=== PATIENT | male | born 1970 | race Caucasian/White ===

== ENCOUNTER 2016-11-06 19:34 | Emergency (ER) | payer OTHER ==
[~2016-11-06] VITALS: Ht 160 cm; Wt 59.0 kg
[2016-11-06] MEDS ORDERED: diphenhydrAMINE HCL 50 MG/ML VIAL IM ONE (19:45)
[2016-11-06] MEDS ORDERED: HALOPERIDOL LACTATE 5 MG/ML AMP IM ONE (19:45)
[2016-11-06] MEDS ORDERED: SODIUM CHLORIDE 0.9% FLUSH 5 ML FLUSH IVF PRN (19:45)
[2016-11-06] MEDS ORDERED: LORazepam 2 MG/ML VIAL IM ONE (19:45)
[2016-11-06 19:56] VITALS: BP 115/86; PULSE 108; RESP 19; TEMP 98.4; O2SAT 95
[2016-11-06 19:58] LABS: AUTOMATED NEUTROPHIL # 6.9 TH/MM3 (1.8-7.7); BASOPHIL # 0.2 TH/MM3 (0-0.2); BASOPHIL % 1.2 % (0.0-2.0); EOSINOPHIL # 0.2 TH/MM3 (0-0.4); EOSINOPHIL % 1.8 % (0.0-4.0); HEMATOCRIT 41.4 % (39.0-51.0); HEMO FLAGS DIFF FINAL; LYMPH % 35.8 % (9.0-44.0); LYMPHOCYTE # 4.5 TH/MM3 (1.0-4.8); MEAN CORPUSCULAR HEMOGLOBIN 31.5 PG (27.0-34.0); NEUT % 55.2 % (16.0-70.0); PLATELET COUNT 268 TH/MM3 (150-450); RED CELL DISTRIBUTION WIDTH 14.6 % (11.6-17.2); WHITE BLOOD COUNT 12.5 TH/MM3 (4.0-11.0)
[2016-11-06 20:05] VITALS: RESP 18; O2SAT 95
[2016-11-06 20:19] LABS: ANION GAP 14 MEQ/L (5-15)
[2016-11-06 20:20] LABS: AMPHETAMINE, URINE NEG (NEG); BARBITURATES, URINE NEG (NEG); COCAINE, URINE NEG (NEG)
[2016-11-06 20:21] LABS: BACTERIA, URINE RARE /hpf; BLOOD, URINE NEG (NEG); GLUCOSE,URINE NEG (NEG); KETONE, URINE NEG (NEG); MUCUS URINE FEW /lpf (OCC); NITRITE,URINE NEG (NEG); PH, URINE 6.5 (5.0-8.5); SQUAMOUS EPITHELIAL CELL URINE <1 /hpf (0-5); URINE COLOR LIGHT-YELLOW (YELLW/STRAW)
[2016-11-06 20:22] LABS: COMMENT (UR) CATH-CULTURE IND; CULTURE IF INDICATED CATH CULTURE IND
[2016-11-06 20:22] LABS: ALKALINE PHOSPHATASE 77 U/L (45-117); ALT (GPT) 22 U/L (12-78); AST (GOT) 25 U/L (15-37); BICARBONATE 22.2 MEQ/L (21.0-32.0); BLOOD UREA NITROGEN 14 MG/DL (7-18); CHLORIDE 105 MEQ/L (98-107); CREATINE KINASE 329 U/L (39-308); GLOMERULAR FILTRATION RATE 55 ML/MIN (>89); POTASSIUM 3.9 MEQ/L (3.5-5.1); SODIUM (NA) 141 MEQ/L (136-145); TOTAL BILIRUBIN ADULT 0.2 MG/DL (0.2-1.0)
[2016-11-06 20:23] LABS: ACETAMINOPHEN LESS THAN 2.0 MCG/ML (10.0-30.0)
[2016-11-06] MEDS ORDERED: SODIUM CHLOR 0.9% 1000 ML INJ 1,000 ML IV ONE ×2 (20:45)
--- NOTE | 2016-11-06 20:58 | PD ---
HPI Chief Complaint: Psychiatric Symptoms Time Seen by Provider: 19:38 Travel History International Travel<30 days: No Contact w/Intl Traveler<30days: No Traveled to known affect area: No History of Present Illness HPI Patient is a 46-year-old male presents emergency department as a Ross act. Per police patient was apparently bothering bystanders as slight weak and her resting them. He approached police and requested to be Ross act. Things and escalated from there and patient became agitated, combative and stating that "things just aren't right". Patient initially got into the police vehicle and then en route became combative and refused to enter the building and was Ross acted. Patient combative here, attempting to hit staff. Stating "I have things real bad", and cannot explain further. Patient later states that he is supposed be on lithium and has been off of this for several weeks. Does not know the remainder of his medications. Upon arrival into the emergency Department patient attempting to assault staff, security and was physically and chemically restrained limiting the remainder of history. [facility] Past Medical History Medical History: Unable to Obtain Past Surgical History Other Surgery: Yes (UROSTOMY) Social History Alcohol Use: No Tobacco Use: No Substance Use: No Allergies-Medications (Allergen,Severity, Reaction): Coded Allergies: Penicillin (Verified Allergy, Severe, 11/06/16) Reported Meds & Prescriptions Reported Meds & Active Scripts Active Active Prescriptions or Reported Medications Unobtainable Review of Systems ROS Limitations: Clinical Condition, Combative, Poor Historian Physical Exam Exam Limitations: Clinical Condition, Poor Historian, Combative Narrative GENERAL: male middle-aged agitated combative and attempting the assault staff SKIN: Warm and dry. HEAD: Atraumatic. Normocephalic. EYES: Pupils equal and round. 3 mm. No scleral icterus. No injection or drainage. ENT: No nasal bleeding or discharge. Mucous membranes pink and m, regular rhythm oist. NECK: Supple CV: heart rate in the 100s. No murmur appreciated. RESPIRATORY: No accessory muscle use. Clear to auscultation. Breath sounds equal bilaterally. GASTROINTESTINAL: Abdomen soft, non-tender, nondistended. Urostomy in place. MUSCULOSKELETAL: Moving all extremities strong NEUROLOGICAL: Agitated, combative. Speech is pressured but clear. Moves all extremities equally and strong PSYCHIATRIC: Aggressive. Admits to "having things real bad" but does not elaborate further. Admits to feeling depressed, somewhat suicidal. Data Data Last Documented VS Vital Signs Date Time Temp Pulse Resp B/P Pulse Ox O2 Delivery O2 Flow Rate FiO2 11/06/16 20:05 18 95 Room Air 11/06/16 20:02 102 11/06/16 19:56 98.4 115/86 Orders Psych Screen (11/06/16 19:38) Electrocardiogram (11/06/16 19:38) Complete Blood Count With Diff (11/06/16 19:38) Comprehensive Metabolic Panel (11/06/16 19:38) Creatine Kinase (Cpk) (11/06/16 19:38) Urinalysis - C+S If Indicated (11/06/16 19:38) Ecg Monitoring (11/06/16 19:38) Iv Access Insert/Monitor (11/06/16 19:38) Oximetry (11/06/16 19:38) Sodium Chloride 0.9% Flush (Ns Flush) (11/06/16 19:45) Drug Screen, Random Urine (11/06/16 19:38) Alcohol (Ethanol) (11/06/16 19:38) Salicylates (Aspirin) (11/06/16 19:38) Tylenol (Acetaminophen) (11/06/16 19:38) Lactic Acid (11/06/16 19:38) Haloperidol Inj (Haldol Inj) (11/06/16 19:45) Lorazepam Inj (Ativan Inj) (11/06/16 19:45) Diphenhydramine Inj (Benadryl Inj) (11/06/16 19:45) Urine Culture (11/06/16 19:55) CKMB (11/06/16 19:50) CKMB% (11/06/16 19:50) Sodium Chlor 0.9% 1000 Ml Inj (Ns 1000 M (11/06/16 20:45) Sodium Chlor 0.9% 1000 Ml Inj (Ns 1000 M (11/06/16 20:45) Lactic Acid (11/06/16 20:39) Lorazepam Inj (Ativan Inj) (11/06/16 21:15) Restraints Non-Violent MONIQUE.Q3H (11/06/16 21:27) Labs Laboratory Tests Test 11/06/16 11/06/16 11/06/16 19:50 19:55 22:09 White Blood Count 12.5 TH/MM3 Red Blood Count 4.60 MIL/MM3 Hemoglobin 14.5 GM/DL Hematocrit 41.4 % Mean Corpuscular Volume 90.0 FL Mean Corpuscular Hemoglobin 31.5 PG Mean Corpuscular Hemoglobin 35.0 % Concent Red Cell Distribution Width 14.6 % Platelet Count 268 TH/MM3 Mean Platelet Volume 7.3 FL Neutrophils (%) (Auto) 55.2 % Lymphocytes (%) (Auto) 35.8 % Monocytes (%) (Auto) 6.0 % Eosinophils (%) (Auto) 1.8 % Basophils (%) (Auto) 1.2 % Neutrophils # (Auto) 6.9 TH/MM3 Lymphocytes # (Auto) 4.5 TH/MM3 Monocytes # (Auto) 0.8 TH/MM3 Eosinophils # (Auto) 0.2 TH/MM3 Basophils # (Auto) 0.2 TH/MM3 CBC Comment DIFF FINAL Differential Comment Sodium Level 141 MEQ/L Potassium Level 3.9 MEQ/L Chloride Level 105 MEQ/L Carbon Dioxide Level 22.2 MEQ/L Anion Gap 14 MEQ/L Blood Urea Nitrogen 14 MG/DL Creatinine 1.40 MG/DL Estimat Glomerular Filtration 55 ML/MIN Rate Random Glucose 87 MG/DL Lactic Acid Level 3.5 mmol/L 1.0 mmol/L Calcium Level 9.4 MG/DL Total Bilirubin 0.2 MG/DL Aspartate Amino Transf 25 U/L (AST/SGOT) Alanine Aminotransferase 22 U/L (ALT/SGPT) Alkaline Phosphatase 77 U/L Total Creatine Kinase 329 U/L Creatine Kinase MB 5.0 NG/ML Creatine Kinase MB % 1.5 % Total Protein 7.7 GM/DL Albumin 3.9 GM/DL Salicylates Level 4.6 MG/DL Acetaminophen Level LESS THAN 2.0 MCG/ML Ethyl Alcohol Level 288 MG/DL Urine Color LIGHT-YELLOW Urine Turbidity HAZY Urine pH 6.5 Urine Specific [place] 1.003 Urine Protein NEG mg/dL Urine Glucose (UA) NEG mg/dL Urine Ketones NEG mg/dL Urine Occult Blood NEG Urine Nitrite NEG Urine Bilirubin NEG Urine Urobilinogen LESS THAN 2.0 MG/DL Urine Leukocyte Esterase LARGE Urine RBC 2 /hpf Urine WBC 12 /hpf Urine Squamous Epithelial <1 /hpf Cells Urine Amorphous Sediment RARE Urine Bacteria RARE /hpf Urine Mucus FEW /lpf Microscopic Urinalysis Comment CATH-CULTURE IND Urine Opiates Screen NEG Urine Barbiturates Screen NEG Urine Amphetamines Screen NEG Urine Benzodiazepines Screen NEG Urine Cocaine Screen NEG Urine Cannabinoids Screen NEG MDM Medical Decision Making Medical Screen Exam Complete: Yes Emergency Medical Condition: Yes Medical Record Reviewed: Yes Differential Diagnosis 46-year-old male here as a Ross act with agitation, depression and suicidal ideation. Wolof includes medication nonadherence, substance-induced mood disorder, excited delirium, schizophrenia, bipolar disorder, alcohol intoxication. Narrative Course Due to patient's aggression, it is not safe for staff or him and he was physically and chemically restrained with Haldol, Ativan, Benadryl. Patient placed on monitor, IV established and blood obtained. Twelve-lead EKG shows sinus rhythm, rate [address] abnormalities, normal intervals. CBC, CMP, CPK, urinalysis, urine drug screen, blood alcohol level, aspirin, Tylenol level and lactic acid were obtained and notable for lactate 3.5. This is likely due to patient's excited delirium. Patient's urinalysis shows large leukocyte esterase with white cells and bacteria, but this is from eat his urostomy and is likely colonized and I do not think warrants treatment. Will await culture. Blood alcohol level 288. Patient was given 2 L normal saline bolus and lactate was repeated and normal at 1.0. Patient medically cleared for psychiatric evaluation. Critical Care Narrative Aggregate critical care time was 35 minutes. Time to perform other separately billable procedures was not included in the critical care time. My time did not include minutes spent treating any other patients simultaneously or on activities that did not directly contribute to the patient's treatment. The services I provided to this patient were to treat and/or prevent clinically significant deterioration that could result in: Cardiopulmonary decompensation, neurologic decompensation, , disability. Excited delirium requiring physical and chemical restraint. I provided critical care services requiring my management, as noted below: Chart data review, documentation time, medication orders and management, vital sign assessments/reviewing monitor data, ordering and reviewing lab tests, ordering and interpreting/reviewing x-rays and diagnostic studies, care of the patient and discussion of the patient with the admitting physicians. Diagnosis Primary Impression: Agitation Additional Impressions: Alcohol intoxication Qualified Code: F10.120 - Alcohol intoxication, uncomplicated Depression Qualified Code: F32.9 - Depression, unspecified depression type Scripts Unable to Obtain Active Prescriptions or Reported Meds Kathy Beebe MD Nov 06, 2016 20:57
[2016-11-06 21:00] VITALS: BP 121/72; PULSE 102; RESP 22; O2SAT 100
[2016-11-06] MEDS ORDERED: LORazepam 2 MG/ML VIAL IV PUSH ONE (21:15)
[2016-11-06 22:00] VITALS: BP 137/87; PULSE 108; RESP 21; O2SAT 99
[2016-11-06 23:00] VITALS: BP 113/67; PULSE 92; RESP 21; O2SAT 99
[2016-11-06 23:38] VITALS: BP 118/68; PULSE 106; RESP 20; O2SAT 98
[2016-11-07] VITALS (7 sets, daily range): BP systolic 135–154; BP diastolic 81–93; PULSE 79–110; RESP 17–24; O2SAT 98–100
[2016-11-07] MEDS ORDERED: HALOPERIDOL LACTATE 5 MG/ML AMP IV PUSH ONE (00:45)
[2016-11-07] MEDS ORDERED: LORazepam 2 MG/ML VIAL IV PUSH ONE (00:45)
[2016-11-07] MEDS ORDERED: HALOPERIDOL LACTATE 5 MG/ML AMP IM ONE (05:00)
--- NOTE | 2016-11-07 08:14 | EKG ---
Date Performed: 11/06/2016 Time Performed: 20:47:21 PTAGE: 46 years EKG: Sinus rhythm BORDERLINE LEFT AXIS DEVIATION BORDERLINE ECG NO PREVIOUS TRACING DOCTOR: Ascencion Tineo Interpretating Date/Time 11/07/2016 08:13:15
[2016-11-07] MEDS ORDERED: LEXA20TA PO (20:03)
[2016-11-07] MEDS ORDERED: BUSP10TA PO (20:03)
[2016-11-07] MEDS ORDERED: LITH300T3 PO (20:03)
[2016-11-07] MEDS ORDERED: QUET300XR PO (20:03)
[2016-11-07] MEDS ORDERED: LITH600C PO (20:03)
[2016-11-08 03:07] VITALS: BP 144/83; PULSE 84; RESP 18; TEMP 97.5; O2SAT 97
[2016-11-08 06:30] VITALS: BP 132/77; PULSE 80; RESP 17; O2SAT 98
[2016-11-08 12:46] VITALS: BP 130/84; PULSE 89; RESP 18; O2SAT 99
[2016-11-08 13:26] VITALS: BP 130/84; PULSE 89; RESP 18; O2SAT 99
--- NOTE | 2016-11-08 13:46 | PD ---
History of Present Illness Chief Complaint: Psychiatric Symptoms Time Seen by Provider: 13:30 Travel History International Travel<30 Days: No Contact w/Intl Traveler<30days: No Known affected area: No Legal Status Legal Status: Ross Act Ross Act Signed By: Shane Ross Act Comment: Signed by [facility] Officer Reji Hernandez # [id number] History of Present Illness: 46-year-old male with a significant history of alcoholism. Patient apparently became intoxicated during week and was bothering other people attending the events. When accosted by police he apparently indicated he wanted to be Ross acted. On the trip to this emergency department, the patient became combative. He was Ross acted at that time. When being admitted to the emergency department, he was combative with staff. He had a significant alcohol level last evening. At the present time the patient is a longer intoxicated. He is calm and pleasant and cooperative. He has no suicidal or homicidal ideation, plan or intent. He would like to be released so he can look for a place to stay at the [facility]. He understands that he had too much to drink last night and was told by this physician that he needs to stop consuming alcohol. However, he is not felt to be suicidal or homicidal or psychotic at the present time. PFSH Past Medical History Medical History: Denies Significant Hx Past Surgical History Other Surgery: Yes (UROSTOMY) Psychiatric History Psychiatric History Hx Psychiatric Treatment: Patient admits to treatment by [facility] psychiatric providers. States that they have switched doctors. States that he has been noncompliant with meds. Meds may include Risperdal, Lexapro, Serquel XR, Crowell. Dosages need to be verified with [facility]. Phone call to [facility] resulted in patient was recently seen at [facility] on 10/11/16 for med management. He was seen by Gladys Morales on 08/30/16. History of Inpatient Treatment: Yes Social History Hx Alcohol Use: No Hx Tobacco Use: No Hx Substance Use: Yes Substance Use Type: Alcohol Other Substances Used: States has been a drinker for approx 35 yrs. Hx of Substance Use Treatment: Yes Allergies-Medications (Allergen,Severity, Reaction): Coded Allergies: Penicillin (Verified Allergy, Severe, 11/06/16) Reported Meds & Prescriptions Reported Meds & Active Scripts Active Reported Seroquel XR (Quetiapine Fumarate) 300 Mg Tab 300 Mg PO HS [place] Carbonate 600 Mg Cap 600 Mg PO HS [place] Carbonate 300 Mg Tab 300 Mg PO DAILY Lexapro (Escitalopram Oxalate) 20 Mg Tab 20 Mg PO DAILY Buspirone (Buspirone HCl) 10 Mg Tab 10 Mg PO TID Review of Systems ROS Limitations: Clinical Condition Except as stated in HPI: all other systems reviewed are Neg Exam Exam Limitations: Clinical Condition Alert: Yes [place]: Person, Place, Date, Situation Mood: Calm Affect: Euthymic Speech: Clear, Logical Eye Contact: Normal Memory Intact: Immediate, Recent, Remote Insight/Judgement Adequate except for using alcohol. MDM Medical Decision Making Medical Record Reviewed: Yes Assessment/Plan 46-year-old male with long history of alcoholism. Became intoxicated last night and was inappropriate with people in public and assaultive/combative with police and hospital staff. At this point he is no longer intoxicated and does not meet criteria for Ross act her inpatient psychiatric hospitalization. Orders Diet Regular Basic (11/08/16 Breakfast) Diet Regular Basic (11/08/16 Lunch) Results Vital Signs Date Time Temp Pulse Resp B/P Pulse Ox O2 Delivery O2 Flow Rate FiO2 11/08/16 13:26 89 18 130/84 99 Room Air 11/08/16 12:46 89 18 130/84 99 Room Air 11/08/16 06:30 80 17 132/77 98 11/08/16 03:07 97.5 84 18 144/83 97 Room Air 11/07/16 22:50 79 17 143/81 100 Room Air 11/07/16 18:00 89 18 149/81 Room Air 11/07/16 14:00 100 18 143/92 Room Air Date/Time Procedure Status Source Growth 11/06/16 19:55 Urine Culture - Final Complete Urine Catheterized Urine 50-100,000 CFU/ML MIXED JULIO CESAR... Diagnosis Primary Impression: Alcohol abuse Referrals: [facility] (Out patient) as needed [facility] needed Mental Health and Substance Abuse Departure Forms: Tests/Procedures Patient Instructions: General Instructions, Depression (ED), Alcohol Intoxication (ED), Medical Clearance for Psychiatric Care (ED) Additional Instructions: Dx: Depression, Alcohol Intoxication Please return to ED if symptoms worsen Disposition: 01 DISCHARGE HOME Condition: Stable Pepe Lowe MD Nov 08, 2016 13:46
== END 2016-11-08 16:54 | disposition home or self-care (01) ==
LOC: NEPE 19:34 → NEPJ 11-08 16:54
DX: F32.9 Major depressive disorder, single episode, unspecified (principal); R45.1 Restlessness and agitation; F10.129 Alcohol abuse with intoxication, unspecified; R94.31 Abnormal electrocardiogram [ECG] [EKG]; R82.90 Unspecified abnormal findings in urine
CPT/HCPCS: 80053; 80307; 81001; 82550; 82552; 83605; 85025; 87086; 93005; 96372; 96374; 96375; 96376; 99291; J1200; J1630; J2060; J7030

== ENCOUNTER 2017-01-31 09:54 | Emergency (ER) | payer SELFPAY ==
[~2017-01-31] VITALS: Ht 160 cm; Wt 63.5 kg
[~2017-01-31 09:54] MED LIST: BUSP10TA PO; LEXA20TA PO; LITH300T3 PO; LITH600C PO; QUET300XR PO
[2017-01-31 09:56] VITALS: BP 136/96; PULSE 134; RESP 20; TEMP 97.7; O2SAT 100
--- NOTE | 2017-01-31 10:16 | PD ---
HPI Chief Complaint: Spinning Operator Problem Time Seen by Provider: 10:12 Travel History International Travel<30 days: No Contact w/Intl Traveler<30days: No Traveled to known affect area: No History of Present Illness HPI 46-year-old male presents to emergency department with need for urostomy bag and equipment as she's had this since childhood. Patient is currently without a job and local primary care physician. He states he currently worsenings online but has been able to secondary to cost. He has not looked into patient assistance or Medicaid at this time. He has no other medical complaints. He is allergic to penicillin. PFSH Past Surgical History Other Surgery: Yes (UROSTOMY) Social History Alcohol Use: No Tobacco Use: No Substance Use: Yes Allergies-Medications (Allergen,Severity, Reaction): Coded Allergies: Penicillin (Verified Allergy, Severe, 01/31/17) Reported Meds & Prescriptions Reported Meds & Active Scripts Active Reported Seroquel XR (Quetiapine Fumarate) 300 Mg Tab 300 Mg PO HS [place] Carbonate 600 Mg Cap 600 Mg PO HS [place] Carbonate 300 Mg Tab 300 Mg PO DAILY Lexapro (Escitalopram Oxalate) 20 Mg Tab 20 Mg PO DAILY Buspirone (Buspirone HCl) 10 Mg Tab 10 Mg PO TID Review of Systems General / Constitutional: No: Fever Eyes: No: Visual changes HENT: No: Headaches Cardiovascular: No: Chest Pain or Discomfort Respiratory: No: Shortness of Breath Gastrointestinal: No: Abdominal Pain Genitourinary: No: Dysuria Musculoskeletal: No: Pain Skin: No Rash Neurologic: No: Weakness Psychiatric: No: Depression Endocrine: No: Polydipsia Hematologic/Lymphatic: No: Easy Bruising Physical Exam Narrative GENERAL: Patient appears in no acute distress. SKIN: Warm and dry. Normal color. Normal turgor. HEAD: Atraumatic. Normocephalic. EYES: Pupils equal and round. No scleral icterus. No injection or drainage. ENT: No nasal bleeding or discharge. Mucous membranes pink and moist. NECK: Trachea midline. No JVD. CARDIOVASCULAR: Regular rate and rhythm. RESPIRATORY: No accessory muscle use. Clear to auscultation. Breath sounds equal bilaterally. GASTROINTESTINAL: Abdomen soft, non-tender, nondistended. Hepatic and splenic margins not palpable. No CVA tenderness. MUSCULOSKELETAL: Extremities without clubbing, cyanosis, or edema. No obvious deformities. NEUROLOGICAL: Awake and alert. No obvious cranial nerve deficits. Motor grossly within normal limits. Five out of 5 muscle strength in the arms and legs. Normal speech. PSYCHIATRIC: Appropriate mood and affect; insight and judgment normal. Data Data Last Documented VS Vital Signs Date Time Temp Pulse Resp B/P Pulse Ox O2 Delivery O2 Flow Rate FiO2 01/31/17 09:56 97.7 134 20 136/96 100 Room Air MDM Medical Decision Making Medical Screen Exam Complete: Yes Emergency Medical Condition: Yes Differential Diagnosis Chronic urostomy. Need for supplies. Need for primary care physician. Need for patient assistance. Narrative Course Patient is medically stable at time of exam. Patient is given replacement equipment 1. Patient is referred to [facility] for further evaluation and treatment. Patient is to speak with patient assistance for further information regarding his situation. Patient can return to the emergency department at any time as needed. Diagnosis Primary Impression: Attention to urostomy Referrals: [facility] Patient Instructions: General Instructions Additional Instructions: Patient is medically stable at time of exam. Patient is given replacement equipment 1. Patient is referred to [facility] for further evaluation and treatment. Patient is to speak with patient assistance for further information regarding his situation. Patient can return to the emergency department at any time as needed. Med/Other Pt SpecificInfo: No Meds Exist/No RX given Disposition: 01 DISCHARGE HOME Condition: Stable Homer Tracy Jan 31, 2017 10:16
== END 2017-01-31 10:46 | disposition home or self-care (01) ==
LOC: NEPK 09:54
DX: Z43.6 Encounter for attention to other artificial openings of urinary tract (principal)
CPT/HCPCS: 99281